=== PATIENT | female | born 1960 ===

== ENCOUNTER 2020-07-05 22:42 | Inpatient (IN) | payer SELFPAY ==
[~2020-07-05] VITALS: Ht 157.5 cm; Wt 61.4 kg
--- NOTE | 2020-07-05 23:00 | NUR ---
PT BIB [facility] FOR LEFT SIDED PARALYSIS THAT STARTED AT 2200. WHILE EN ROUTE TO HOSPITAL, PT SYMPTOMS RESOLVED AT 5. PT WAS TAKEN STRAIGHT TO CT ON [address]. [facility] STROKE SCALE WAS 1 UPON ARRIVAL TO [place]. 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
--- NOTE | 2020-07-05 23:03 | NUR ---
FAMILY AT BEDSIDE WITH FAGOTING MACHINE OPERATOR AND DR MACK OBTAINING HEALTH HISTORY
[2020-07-05 23:04] LABS: BASOPHILS # (AUTO) 0.04 x10^3/uL (0-0.1); BASOPHILS % (AUTO) 1 % (0-1); EOSINOPHILS # (AUTO) 0.22 x10^3/uL (0-0.4); EOSINOPHILS % (AUTO) 3 % (1-7); LYMPHOCYTES # (AUTO) 2.29 x10^3/uL (1-3.4); LYMPHOCYTES % (AUTO) 28 % (22-44); MD NO; MEAN CORPUSCULAR HEMOGLOBIN 26.9 pg (27.0-34.8); MEAN CORPUSCULAR HGB CONC 32.5 g/dL (32.4-35.8); MEAN CORPUSCULAR VOLUME 82.8 fL (80-100); MONOCYTES # (AUTO) 0.46 x10^3/uL (0.2-0.8); MONOCYTES % (AUTO) 6 % (2-9); NEUTROPHILS # (AUTO) 5.08 x10^3/uL (1.8-6.8); NEUTROPHILS % (AUTO) 63 % (42-75); PLATELET COUNT 257 x10^3/uL (130-400); RED BLOOD COUNT 5.15 x10^6/uL (3.82-5.3); RED CELL DISTRIBUTION WIDTH 14.7 % (9.6-15.2)
--- NOTE | 2020-07-05 23:04 | NUR ---
PT IN ATRIAL FIBRILATION FIB
[2020-07-05] MEDS ORDERED: OMNIPAQUE 350 MG/ML, 100ML BOTTLE ONE (23:09)
[2020-07-05 23:13] LABS: INTERNATIONAL NORMALIZED RATIO 1.06 (0.93-1.1); PROTHROMBIN TIME 10.9 Seconds (9.6-11.5)
--- NOTE | 2020-07-05 23:24 | NUR ---
PER NEUROLOGY, NO TPA AT THIS TIME. HEPARIN INSTEAD
[2020-07-05] MEDS ORDERED: HEPARIN 25,000 UNITS/250ML PMX 250 ML ONE (23:29)
[2020-07-05] MEDS ORDERED: LABETALOL 5MG/ML, 20ML IVPush PRN (23:30)
[2020-07-05] MEDS ORDERED: ALTEPLASE IV ONE (23:30)
[2020-07-05] MEDS ORDERED: ALTEPLASE 6 MG in SYRINGE 1 EA IVPush ONE (23:30)
[2020-07-05] MEDS ORDERED: DO NOT GIVE XX PRN (23:30)
[2020-07-05] MEDS ORDERED: HEPARIN wt. based STROKE protocol MC PRN (23:30)
--- NOTE | 2020-07-05 23:38 | NUR ---
PT AND FAMILY INFORMED OF NPO STATUS AND RATIONAL FOR IT
--- NOTE | 2020-07-05 23:53 | NUR ---
WAYNE RODRIGES CHECKED HEPARIN WITH ME PRIOR TO STARTING.
[2020-07-06] VITALS (8 sets, daily range): BP systolic 125–167; BP diastolic 71–110
--- NOTE | 2020-07-06 00:01 | NUR ---
PT AMBULATORY TO BEDSIDE CAMMODE WITH STAND BY ASSIST
[2020-07-06] MEDS ORDERED: [UNRECOGNIZED DRUG - OTHER] (00:03)
[2020-07-06] MEDS: HEPARIN 25,000 UNITS/250ML PMX 250 ML IV PRN (00:07)
--- NOTE | 2020-07-06 00:09 | NUR ---
STROKE SCALE ASSESSMENT ATTACHED TO PAPER CHART
--- NOTE | 2020-07-06 00:24 | NUR ---
REPORT TO WAYNE WONG
--- NOTE | 2020-07-06 00:25 | NUR ---
DAUGHTER RJ [phone] GRANDDAUGHTER ZHANG [phone]
[2020-07-06] MEDS ORDERED: HEPARIN wt. based STROKE protocol MC PRN (00:30)
[2020-07-06] MEDS ORDERED: DOCUSATE 100 MG CAPSULE PO PRN (00:30)
[2020-07-06] MEDS ORDERED: BISACODYL 10 MG SUPP PR PRN (00:30)
[2020-07-06] MEDS ORDERED: ACETAMINOPHEN 650 MG/20.3 ML UDC PO PRN (00:30)
[2020-07-06] MEDS ORDERED: ONDANSETRON 4 MG TABLET PO PRN (00:30)
[2020-07-06] MEDS ORDERED: POLYETHYLENE GLYCOL 17 GM PACKET PO PRN (00:30)
[2020-07-06] MEDS ORDERED: ONDANSETRON ODT 4 MG PO PRN (01:00)
[2020-07-06 01:13] LABS: FREE T4 (FREE THYROXINE) 1.21 ng/dL (0.76-1.46)
[2020-07-06] MEDS: ATORVASTATIN 40 MG TABLET PO SCH ×2 (02:06→19:58)
[2020-07-06] MEDS ORDERED: ALTEPLASE 1 ML ONE (03:22)
[2020-07-06 06:16] LABS: BASOPHILS # (AUTO) 0.05 x10^3/uL (0-0.1); BASOPHILS % (AUTO) 0 % (0-1); EOSINOPHILS # (AUTO) 0.03 x10^3/uL (0-0.4); EOSINOPHILS % (AUTO) 0 % (1-7); LYMPHOCYTES # (AUTO) 1.62 x10^3/uL (1-3.4); LYMPHOCYTES % (AUTO) 15 % (22-44); MD NO; MEAN CORPUSCULAR HEMOGLOBIN 27.2 pg (27.0-34.8); MEAN CORPUSCULAR HGB CONC 33.1 g/dL (32.4-35.8); MEAN CORPUSCULAR VOLUME 82.3 fL (80-100); MEAN PLATELET VOLUME 8.3 fL (7.4-10.4); MONOCYTES % (AUTO) 4 % (2-9); NEUTROPHILS # (AUTO) 8.99 x10^3/uL (1.8-6.8); NEUTROPHILS % (AUTO) 81 % (42-75); PLATELET COUNT 246 x10^3/uL (130-400); RED BLOOD COUNT 5.32 x10^6/uL (3.82-5.3); RED CELL DISTRIBUTION WIDTH 14.1 % (9.6-15.2)
[2020-07-06 06:18] LABS: ALANINE AMINOTRANSFERASE 20 U/L (12-78); ALBUMIN 3.7 g/dL (3.4-5.0); ANION GAP 7 mmol/L (5-15); CALCIUM 9.3 mg/dL (8.5-10.1); CHLORIDE 109 mmol/L (98-107); CREATININE 0.64 mg/dL (0.55-1.02)
[2020-07-06 06:20] LABS: ALKALINE PHOSPHATASE 146 U/L (45-117); BILIRUBIN,TOTAL 1.1 mg/dL (0.2-1.0); TOTAL PROTEIN 8.5 g/dL (6.4-8.2)
[2020-07-06] MEDS ORDERED: ASPIRIN 81 MG TABLET CHEW PO/NG SCH (09:00)
--- NOTE | 2020-07-06 10:00 | NUR ---
REC: Home with family assistance Addendum: 07/06/20 at 1001 by Bindu STALEY Amended: Links added.
[2020-07-07 00:02] VITALS: BP 145/78
[2020-07-07 01:45] LABS: CHOL/HDL RATIO 2.2; LDL/HDL RATIO 1.1 (0.5-3.0)
[2020-07-07 04:00] VITALS: BP 138/72
[2020-07-07] MEDS: HEPARIN 25,000 UNITS/250ML PMX 250 ML IV PRN (04:48)
[2020-07-07 07:03] VITALS: BP 131/80
[2020-07-07] MEDS ORDERED: METOPROLOL TARTRATE 25 MG TAB PO SCH (08:00)
[2020-07-07] MEDS ORDERED: APIX5TAB PO (12:09)
[2020-07-07] MEDS ORDERED: METO25TA35 PO (12:09)
[2020-07-07] MEDS ORDERED: ASPI81TA45 PO (12:09)
[2020-07-07] MEDS ORDERED: ATOR40TA78 PO (12:09)
[2020-07-07 12:16] VITALS: BP 124/83
== END 2020-07-07 13:35 | disposition home or self-care (01) | DRG 65 ==
LOC: EDBD 22:42 → EDSEX 22:42 → ED 07-06 00:16 → EDIP 07-06 00:26 → 4WST 07-06 01:04 → DCLOUNGE 07-07 13:22
PROVIDERS: ADMIT Family Medicine; ATTEND Internal Medicine
DX: I63.411 Cerebral infarction due to embolism of right middle cerebral artery (principal); G81.94 Hemiplegia, unspecified affecting left nondominant side; D68.69 Other thrombophilia; F17.210 Nicotine dependence, cigarettes, uncomplicated; H91.91 Unspecified hearing loss, right ear; I08.1 Rheumatic disorders of both mitral and tricuspid valves; I48.91 Unspecified atrial fibrillation; M19.90 Unspecified osteoarthritis, unspecified site; Z88.0 Allergy status to penicillin; Z88.8 Allergy status to other drugs, medicaments and biological substances
CPT/HCPCS: 36415; 70450; 70496; 70498; 70551; 80047; 80053; 80061; 82962; 83735; 84439; 84443; 85025; 85520; 85610; 85730; 93005; 93306; G0378; Q9967